=== PATIENT | female | born 1980 | race Caucasian/White ===

== ENCOUNTER 2018-12-19 19:57 | Emergency (ER) | payer SELFPAY ==
[2018-12-19] MEDS ORDERED: KETOROLAC 30 MG/ML INJ ONE (21:13)
[2018-12-19] MEDS ORDERED: CYCLOBENZAPRINE 10 MG TAB ONE (21:13)
--- NOTE | 2018-12-19 21:53 | ER ---
Nurse's Notes [facility] Name: Faby Ontiveros Age: 38 yrs Sex: Female : 1980 Arrival Date: 12/19/2018 Time: 20:00 Bed 20 Private MD: Diagnosis: Low back pain Presentation: 12/19 20:35 Presenting complaint: Patient states: Pt reports she started having right hip pain that ea radiates to her hip and pelvis, pt reports pain feels sharp. pt states "it feels like it is traveling to my ovaries". Transition of care: patient was not received from another setting of care. Onset of symptoms was December 19, 2018. Risk Assessment: Do you want to hurt yourself or someone else? Patient reports no desire to harm self or others. Initial Sepsis Screen: Does the patient meet any 2 criteria? No. Patient's initial sepsis screen is negative. Does the patient have a suspected source of infection? No. Patient's initial sepsis screen is negative. Care prior to arrival: Medication(s) given: Motrin, 1/2 lortab. 20:35 Method Of Arrival: Ambulatory ea 20:35 Acuity: MAMTA 4 ea Triage Assessment: 21:29 General: Appears uncomfortable, Behavior is cooperative, appropriate for age. ae4 Musculoskeletal: Patient has a stiff gait. no visible swelling to lower back. 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 - Social history:: Smoking status: Patient/guardian denies using tobacco. - Ebola Screening: : No symptoms or risks identified at this time. Screenin:37 Abuse screen: Denies threats or abuse. Nutritional screening: No deficits noted. ea Tuberculosis screening: No symptoms or risk factors identified. Fall Risk None identified. Assessment: 20:50 General: Appears uncomfortable, Behavior is cooperative, anxious. Pain: Complains of ae4 pain in right low back Pain radiates to right lower quadrant. Pain: Pain currently is 8 out of 10 on a pain scale. Neuro: Level of Consciousness is awake, alert, obeys commands, Oriented to person, place, time, situation, Appropriate for age. Cardiovascular: Patient's skin is warm and dry. Respiratory: Airway is patent Respiratory effort is even, unlabored, Respiratory pattern is regular, symmetrical. GI: No signs and/or symptoms were reported involving the gastrointestinal system. : No signs and/or symptoms were reported regarding the genitourinary system. Urine is cloudy. EENT: No signs and/or symptoms were reported regarding the EENT system. Derm: Skin is pink, warm \\T\\ dry. Musculoskeletal: Reports pain in right low back. 21:26 Reassessment: Patient states feeling better. Patient states symptoms have improved. ae4 Pain: Complains of pain in right low back Pain radiates to right lower quadrant. Pain: Pain currently is 2 out of 10 on a pain scale. 22:31 Reassessment: Patient appears in no apparent distress at this time. Patient and/or jb4 family updated on plan of care and expected duration. Pain level reassessed. Patient is alert, oriented x 3, equal unlabored respirations, skin warm/dry/pink. Patient states feeling better. Vital Signs: 20:37 BP 130 / 51; Pulse 87; Resp 18; Temp 98.7; Pulse Ox 99% on R/A; Weight 57.61 kg; Height ea 4 ft. 11 in. (149.86 cm); Pain 10/10; 21:37 BP 112 / 57; Pulse 66; Resp 16; Pulse Ox 99% on R/A; jb4 22:29 BP 102 / 70; Pulse 72; Resp 16; Pulse Ox 98% on R/A; jb4 20:37 Body Mass Index 25.65 (57.61 kg, 149.86 cm) ea ED Course: 20:00 Patient arrived in ED. am2 20:20 Macarena Barlow FNP-C is [facility]. kb 20:20 Cristobal Harding MD is Attending Physician. kb 20:36 Radiology exam delayed due to test not completed at this time. vm2 20:37 Triage completed. ea 20:40 Arm band placed on right wrist. Patient placed in an exam room, on a stretcher, on ea pulse oximetry. 21:[address] via wheelchair. vm2 21:27 Bed in low position. Call light in reach. Side rails up X 1. Pulse ox on. NIBP on. ae4 Pillow given. 21:33 Ankur Brito, RN is Primary Nurse. ae4 22:29 No provider procedures requiring assistance completed. Patient did not have IV access jb4 during this emergency room visit. Administered Medications: 21:02 Drug: TORadol 60 mg Route: IM; Site: right gluteus; ae4 21:24 Follow up: Response: Pain is decreased ae4 21:02 Drug: Flexeril 10 mg Route: PO; ae4 21:24 Follow up: Response: Pain is decreased ae4 22:20 Drug: SOLU-Medrol 125 mg Route: IM; Site: left gluteus; jb4 22:34 Follow up: Response: No adverse reaction jb4 Outcome: 21:53 Discharge ordered by . kb 22:29 Discharged to home ambulatory, with family. jb4 22:29 Condition: stable 22:29 Discharge instructions given to patient, family, Instructed on discharge instructions, follow up and referral plans. medication usage, Demonstrated understanding of instructions, follow-up care, medications, Prescriptions given X 2. 22:35 Patient left the ED. jb4 Signatures: Macarena Barlow, CARROTING MACHINE OFFBEARER-C CARROTING MACHINE OFFBEARER-Ckb Alexander Watkins RN RN jb4 Fanny Espinoza Victoria vm2 Gabrielle Roberts RN RN ea Elliott, Andrea, RN RN ae4
--- NOTE | 2018-12-19 21:54 | EDPHYS ---
Physician Documentation [facility] Name: Faby Ontiveros Age: 38 yrs Sex: Female : 1980 Arrival Date: 12/19/2018 Time: 20:00 Bed 20 Private MD: ED Physician Cristobal Harding HPI: 12/19 21:18 This 38 yrs old Female presents to ER via Ambulatory with complaints of Back kb Pain. 21:18 The patient presents with pain that is acute, with no known mechanism of injury. The kb symptoms are located in the low back. Onset: The symptoms/episode began/occurred today. The pain radiates to the right iliac crest. Associated signs and symptoms: The patient has no apparent associated signs or symptoms. The problem was sustained without known cause. Modifying factors: The patient symptoms are alleviated by nothing, the patient symptoms are aggravated by any movement. Severity of symptoms: At their worst the symptoms were moderate, in the emergency department the symptoms are unchanged. The patient has experienced similar episodes in the past. The patient has not recently seen a physician. Pt states she was sitting down and started having right low back pain. "I thought it was my regular sciatica but then it radiated around my hip to my ovary.". 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 - Social history:: Smoking status: Patient/guardian denies using tobacco. - Ebola Screening: : No symptoms or risks identified at this time. ROS: 21:16 Constitutional: Negative for fever, chills, and weight loss, Cardiovascular: Negative kb for chest pain, palpitations, and edema, Respiratory: Negative for shortness of breath, cough, wheezing, and pleuritic chest pain, Abdomen/GI: Negative for abdominal pain, nausea, vomiting, diarrhea, and constipation, : Negative for injury, bleeding, discharge, and swelling, MS/Extremity: Negative for injury and deformity, Skin: Negative for injury, rash, and discoloration, Neuro: Negative for headache, weakness, numbness, tingling, and seizure. 21:16 Back: Positive for pain at rest, pain with movement, radiated pain, of the right low back. Exam: 21:16 Constitutional: This is a well developed, well nourished patient who is awake, alert, kb and in no acute distress. Head/Face: Normocephalic, atraumatic. Chest/axilla: Normal chest wall appearance and motion. Nontender with no deformity. No lesions are appreciated. Cardiovascular: Regular rate and rhythm with a normal S1 and S2. No gallops, murmurs, or rubs. Normal PMI, no JVD. No pulse deficits. Respiratory: Lungs have equal breath sounds bilaterally, clear to auscultation and percussion. No rales, rhonchi or wheezes noted. No increased work of breathing, no retractions or nasal flaring. Abdomen/GI: Soft, non-tender, with normal bowel sounds. No distension or tympany. No guarding or rebound. No evidence of tenderness throughout. Back: No spinal tenderness. No costovertebral tenderness. Pain with movement Skin: Warm, dry with normal turgor. Normal color with no rashes, no lesions, and no evidence of cellulitis. MS/ Extremity: Pulses equal, no cyanosis. Neurovascular intact. Full, normal range of motion. Neuro: Awake and alert, GCS 15, oriented to person, place, time, and situation. Cranial nerves II-XII grossly intact. Motor strength 5/5 in all extremities. Sensory grossly intact. Cerebellar exam normal. Normal gait. Vital Signs: 20:37 BP 130 / 51; Pulse 87; Resp 18; Temp 98.7; Pulse Ox 99% on R/A; Weight 57.61 kg; Height ea 4 ft. 11 in. (149.86 cm); Pain 10/10; 21:37 BP 112 / 57; Pulse 66; Resp 16; Pulse Ox 99% on R/A; jb4 22:29 BP 102 / 70; Pulse 72; Resp 16; Pulse Ox 98% on R/A; jb4 20:37 Body Mass Index 25.65 (57.61 kg, 149.86 cm) ea MDM: 20:20 Patient medically screened. kb 21:17 Data reviewed: vital signs, nurses notes. Data interpreted: Pulse oximetry: on room air kb is 99 %. Interpretation: normal. Counseling: I had a detailed discussion with the patient and/or guardian regarding: the historical points, exam findings, and any diagnostic results supporting the discharge/admit diagnosis, radiology results, the need for outpatient follow up, a family practitioner, to return to the emergency department if symptoms worsen or persist or if there are any questions or concerns that arise at home. 12/19 20:56 Order name: Urine Dipstick--Ancillary (enter results) ri 12/19 20:56 Order name: Urine --Ancillary (enter results) ri 12/19 20:33 Order name: Urine Dipstick-Ancillary (obtain specimen); Complete Time: 20:55 kb Administered Medications: 21:02 Drug: TORadol 60 mg Route: IM; Site: right gluteus; ae4 21:24 Follow up: Response: Pain is decreased ae4 21:02 Drug: Flexeril 10 mg Route: PO; ae4 21:24 Follow up: Response: Pain is decreased ae4 22:20 Drug: SOLU-Medrol 125 mg Route: IM; Site: left gluteus; jb4 22:34 Follow up: Response: No adverse reaction jb4 Disposition: 12/20 00:40 Co-signature as Attending Physician, Cristobal Harding MD. [email or web address] Disposition: 12/19/18 21:53 Discharged to Home. Impression: Low back pain. - Condition is Stable. - Discharge Instructions: Back Pain, Adult, [id number]. - Prescriptions for Cyclobenzaprine 10 mg Oral Tablet - take 1 tablet by ORAL route every 8 hours As needed; 21 tablet. Diclofenac Sodium 75 mg Oral Tablet, Delayed Release (E.C.) - take 1 tablet by ORAL route 2 times per day As needed; 30 tablet. - Medication Reconciliation Form, Thank You Letter, Antibiotic Education, Prescription Opioid Use form. - Follow up: Emergency Department; When: As needed; Reason: Worsening of condition. Follow up: Private Physician; When: 2 - 3 days; Reason: Recheck today's complaints, Continuance of care, Re-evaluation by your physician. Signatures: Dispatcher [employer] Macarena Swartz, Cristobal Fuentes MD MD pkl Alexander Watkins RN RN jb4 Gabrielle Roberts RN RN ea Elliott, Andrea RN RN ae4 Corrections: (The following items were deleted from the chart) 12/19 21:18 21:16 Constitutional: This is a well developed, well nourished patient who is awake, kb alert, and in no acute distress. Head/Face: Normocephalic, atraumatic. Chest/axilla: Normal chest wall appearance and motion. Nontender with no deformity. No lesions are appreciated. Cardiovascular: Regular rate and rhythm with a normal S1 and S2. No gallops, murmurs, or rubs. Normal PMI, no JVD. No pulse deficits. Respiratory: Lungs have equal breath sounds bilaterally, clear to auscultation and percussion. No rales, rhonchi or wheezes noted. No increased work of breathing, no retractions or nasal flaring. Abdomen/GI: Soft, non-tender, with normal bowel sounds. No distension or tympany. No guarding or rebound. No evidence of tenderness throughout. Back: No spinal tenderness. No costovertebral tenderness. Full range of motion. Skin: Warm, dry with normal turgor. Normal color with no rashes, no lesions, and no evidence of cellulitis. MS/ Extremity: Pulses equal, no cyanosis. Neurovascular intact. Full, normal range of motion. Neuro: Awake and alert, GCS 15, oriented to person, place, time, and situation. Cranial nerves II-XII grossly intact. Motor strength 5/5 in all extremities. Sensory grossly intact. Cerebellar exam normal. Normal gait. kb 22:35 21:53 12/19/2018 21:53 Discharged to Home. Impression: Low back pain. Condition is jb4 Stable. Forms are Medication Reconciliation Form, Thank You Letter, Antibiotic Education, Prescription Opioid Use. Follow up: Emergency Department; When: As needed; Reason: Worsening of condition. Follow up: Private Physician; When: 2 - 3 days; Reason: Recheck today's complaints, Continuance of care, Re-evaluation by your physician. kb
[2018-12-19] MEDS ORDERED: METHYLPREDNISOLONE 125 MG INJ ONE (22:26)
[2018-12-20 05:35] LABS: Urine Blood TRACE (NEG); Urine Glucose NEGATIVE (NEG); Urine Protein TRACE (NEG); Urine Specific Gravity 1.025 (1.005-1.030)
--- NOTE | 2018-12-21 10:14 | RAD REPORT ---
EXAM DESCRIPTION: CT - Stone Protocol - 12/19/2018 9:49 pm CLINICAL HISTORY: 38 years Female, flank pain COMPARISON: None. TECHNIQUE: CT scan of the abdomen and pelvis without contrast. 3 mm axial images were obtained along with coronal and sagittal reformatted images. This exam was performed according to our departmental dose-optimization program, which includes autom ated exposure control, adjustment of the mA and/or kV according to patient size and/or use of iterati ve reconstruction technique.. FINDINGS: Lung bases: No active infiltrates. Liver: Normal. Spleen: Normal. Pancreas: Normal. Gallbladder: Normal. Right adrenal gland: Normal. Left adrenal gland: Normal. Right kidney: There are hyperdense renal pyramids throughout the right kidney. This is a nonspecific finding ranging from normal, to dehydration, to increased urine osmolality. Left kidney: There are hyperdense renal pyramids throughout the left kidney. Right ureter: Normal course and caliber. Left ureter: Normal course and caliber. Urinary bladder: Unremarkable. Retroperitoneal structures: Mild atherosclerotic disease about the abdominal aorta and iliac arteries . Bowel survey: Increased stool within the ascending and proximal transverse colon as well as the dista l descending colon. The appendix is not identified. There are no secondary signs of appendicitis. Peritoneal cavity: No free fluid. Mesenteric structures: Unremarkable. Abdominal wall: Small subumbilical hernia containing fat. Bony structures: No suspicious lesions. IMPRESSION: 1. Hyperdense renal pyramids bilaterally which is a nonspecific finding and may reflect a normal finding for the patient, dehydration, or increased urinary osmolality. 2. Increased stool within the ascending and proximal transverse colon as well as the distal descendin g colon. 3. Atherosclerotic disease. 4. Small supraumbilical hernia containing fat. Electronically signed by: Ean Boyle MD 12/19/2018 9:41 PM CDT Due to temporary technical issues with the PACS/Fluency reporting system, reports are being signed by the in house radiologist as a courtesy to ensure prompt reporting. The interpreting radiologist is f ully responsible for the content of the report.
== END 2018-12-19 22:35 | disposition home or self-care (01) ==
LOC: ER 19:57
DX: M54.5 Low back pain (principal); Z88.0 Allergy status to penicillin
CPT/HCPCS: 74176; 76377; 81003; 81025; 96372; 99284; J2930

== ENCOUNTER 2019-05-05 10:18 | Emergency (ER) | payer SELFPAY ==
[2019-05-05] MEDS ORDERED: ONDANSETRON 4 MG/2 ML VIAL ONE (10:50)
[2019-05-05] MEDS ORDERED: NA CHLORIDE 0.9% 1,000 ML ONE ×2 (10:51→11:41)
[2019-05-05 11:10] LABS: Absolute Lymphocytes (CBC) 0.9 K/uL (0.7-4.9); Basophils % 0.8 % (0-1.3); Hematocrit 39.7 % (36.0-45.0); Lymphocytes % 9.2 % (15.3-44.8); MPV 9.1 fL (7.6-11.3); RBC Red Blood Cell Count 4.13 M/uL (3.86-4.86)
[2019-05-05 11:35] LABS: Albumin 3.6 g/dL (3.4-5.0); Bilirubin Direct 0.1 mg/dL (0-0.2); Bilirubin Total 0.5 mg/dL (0.2-1.0); Potassium 3.9 mmol/L (3.5-5.1)
[2019-05-05 11:55] LABS: Urine Blood 3+ (NEG); Urine Glucose NEGATIVE (NEG); Urine Protein NEGATIVE (NEG)
--- NOTE | 2019-05-05 12:10 | RAD REPORT ---
EXAM DESCRIPTION: CT - Abdomen Pelvis Wo Contrast - 05/05/2019 11:55 am CLINICAL HISTORY: Abdominal pain. ABD PAIN COMPARISON: Stone Protocol dated 12/19/2018 TECHNIQUE: CT imaging of the abdomen and pelvis was performed without contrast. Solid organ, bowel a nd vascular assessment is limited due to lack of IV and oral contrast. All CT scans are performed using dose optimization technique as appropriate and may include automated exposure control or mA/KV adjustment according to patient size. FINDINGS: The lower lung de luna are clear. The liver, spleen, pancreas, adrenal glands are within normal limits for a limited non-contrast exami nation.Both kidneys appear somewhat prominent in size with subtle hyperdensity seen in the medullary pyramids. No stone or hydronephrosis. Small fat containing umbilical hernia. No bowel obstruction, free air, intra-abdominal free fluid or abscess. Appendectomy. Trace free flui d is seen in the pelvis. The osseous structures are within normal limits. IMPRESSION: No acute intra-abdominal or pelvic findings. Mildly prominent renal size with subtle hyperdensity in the medullary pyramids may indicate dehydrati on. Suggest correlation with clinical findings. A limited non-contrast examination was performed as detailed.
--- NOTE | 2019-05-05 13:04 | ER ---
Nurse's Notes [facility] Name: Faby Ontiveros Age: 39 yrs Sex: Female : 1980 Arrival Date: 05/05/2019 Time: 10:19 Bed 19 [facility] MD: Diagnosis: Dehydration;Unspecified abdominal pain;Dental pain Presentation: 05/05 10:31 Presenting complaint: Patient states: vomiting that began last night. Family member ss states. " she has an abscessed tooth so I don't know if that is what is going on, but she started taking some Cipro that we had laying around the house yesterday.". Transition of care: patient was not received from another setting of care. Onset of symptoms was May 04, 2019. Risk Assessment: Do you want to hurt yourself or someone else? Patient reports no desire to harm self or others. Initial Sepsis Screen: Does the patient have a suspected source of infection? No. Patient's initial sepsis screen is negative. Care prior to arrival: None. 10:31 Acuity: MAMTA 3 ss 10:31 Method Of Arrival: Ambulatory ss 11:00 Initial Sepsis Screen: Does the patient meet any 2 criteria? No. Patient's initial bp sepsis screen is negative. Triage Assessment: 11:00 General: Appears in no apparent distress. comfortable, Behavior is cooperative, bp appropriate for age, anxious. 11:00 Pain: Denies pain. EENT: No deficits noted. Neuro: No deficits noted. Cardiovascular: bp No deficits noted. Respiratory: No deficits noted. GI: Reports nausea, vomiting. : No signs and/or symptoms were reported regarding the genitourinary system. Derm: No deficits noted. Musculoskeletal: No deficits noted. RANGE AID: 13:16 LMP N/A - Irregular menses bp Historical: - Allergies: 10:34 PENICILLINS; ss - PSHx: 10:34 Appendectomy; Tubal ligation; titanium fernando left lower leg; ss - Immunization history:: Adult Immunizations up to date. - Social history:: Smoking status: Patient uses tobacco products, smokes one-half pack cigarettes per day. - Ebola Screening: : Patient denies exposure to infectious person Patient denies travel to an Ebola-affected area in the 21 days before illness onset. Screenin:36 Abuse screen: Denies threats or abuse. Denies injuries from another. Nutritional bp screening: No deficits noted. Tuberculosis screening: No symptoms or risk factors identified. Fall Risk None identified. Assessment: 10:34 Reassessment: Patient is kneeling over trash can and insist that she would like to ss kneel a little longer before getting into the exam bed to obtain VS. Unable to obtain VS at this time. Patient given emesis bag, is thankful. 11:28 Reassessment: VS STABLE, CT PENDING. Pain: Denies pain. GI: Abdomen is non-distended. bp 12:07 Reassessment: PT RETURNED FROM CT. ALL CURRENT ORDERS COMPLETED Patient states feeling bp better. 13:17 Reassessment: PT D/C HOME AMBULATORY WITH FAMILY, DX WITH DEHYDRATION AND DENTAL PAIN. bp Vital Signs: 10:34 BP 123 / 73; Pulse 66; Resp 17; Temp 97.5; Pulse Ox 100% ; Weight 56.7 kg; Height 4 ft. bp 11 in. (149.86 cm); Pain 8/10; 11:28 BP 103 / 66; Pulse 61; Resp 14; Pulse Ox 100% ; bp 12:07 BP 119 / 38; Pulse 58; Resp 16; Pulse Ox 100% ; bp 13:16 BP 105 / 67; Pulse 93; Resp 16; Temp 97.5; Pulse Ox 99% ; bp 10:34 Body Mass Index 25.25 (56.70 kg, 149.86 cm) bp ED Course: 10:19 Patient arrived in ED. as 10:28 Timur Harry, ABHIJEET is Primary Nurse. bp 10:33 Triage completed. ss 10:34 Devan Ponce NP is PHCP. pm1 10:34 Yovani Olmos MD is Attending Physician. pm1 10:34 Arm band placed on right wrist. ss 10:36 Patient has correct armband on for positive identification. Bed in low position. Call bp light in reach. Side rails up X2. Adult w/ patient. 11:01 Inserted saline lock: 20 gauge in right antecubital area, using aseptic technique. bp Blood collected. 11:30 Radiology exam delayed due to lab results not completed at this time. (BUN/Creatinine). sj 11:[address] via wheelchair. nj 11:55 Abdomen In Process Unspecified. EDMS 13:17 No provider procedures requiring assistance completed. IV discontinued, intact, bp bleeding controlled, No redness/swelling at site. Pressure dressing applied. Administered Medications: 11:00 Drug: NS 0.9% 1000 ml Route: IV; Rate: 1000 ml; Site: right antecubital; bp 13:19 Follow up: IV Status: Completed infusion; IV Intake: 1000ml bp 11:01 Drug: Zofran 4 mg Route: IVP; Site: right antecubital; bp 11:03 Follow up: Response: Nausea is decreased bp 12:07 Drug: NS 0.9% 1000 ml Route: IV; Rate: 1000 ml; Site: right antecubital; bp 13:19 Follow up: IV Status: Completed infusion; IV Intake: 1000ml bp Intake: 13:19 IV: 1000ml; Total: 1000ml. bp 13:19 IV: 1000ml; Total: 2000ml. bp Outcome: 13:03 Discharge ordered by MD. pm1 13:17 Discharged to home ambulatory, with family. bp 13:17 Condition: stable 13:17 Discharge instructions given to patient, Instructed on discharge instructions, follow up and referral plans. medication usage, Demonstrated understanding of instructions, follow-up care, medications, Prescriptions given X 3. 13:19 Patient left the ED. bp Signatures: Dispatcher [employer] EDMS Odilia Nuñez Amelia as Smirch, Shelby, RN RN ss Devan Ponce NP CHIP TESTER pm1 Angelo Meza Brian, RN RN bp Corrections: (The following items were deleted from the chart) 10:36 10:34 Resp 17bpm; 56.7 kg; Height 4 ft. 11 in.; BMI: 25.2; Pain 8/10; ss bp 10:36 10:34 Reassessment: Patient is standing over trash can and insist that she would like ss to kneel a little longer before getting into the exam bed to obtain VS. ss
--- NOTE | 2019-05-05 13:04 | EDPHYS ---
Physician Documentation [facility] Name: Faby Ontiveros Age: 39 yrs Sex: Female : 1980 Arrival Date: 05/05/2019 Time: 10:19 Bed 19 Private MD: ED Physician Yovani Olmos HPI: 05/05 10:59 This 39 yrs old Female presents to ER via Ambulatory with complaints of pm1 Vomiting, Toothache. 10:59 The patient presents to the emergency department with nausea, vomiting, abdominal pain. pm1 Onset: The symptoms/episode began/occurred last night. Possible causes: unknown, thinks that it might be Cipro that she took. She took some left over Cipro for some swelling to right jaw area due to dental issue. Patient's dental pain started 1 week ago but the pain went away a few days later. Patient does not currently have any dental pin. The symptoms are aggravated by nothing. The symptoms are alleviated by nothing. Associated signs and symptoms: Pertinent negatives: diarrhea, dysuria, fever. Severity of symptoms: in the emergency department the symptoms are unchanged. The patient has not experienced similar symptoms in the past. The patient has not recently seen a physician. 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 - Social history:: Smoking status: Patient uses tobacco products, smokes one-half pack cigarettes per day. - Ebola Screening: : Patient denies exposure to infectious person Patient denies travel to an Ebola-affected area in the 21 days before illness onset. ROS: 10:59 Constitutional: Negative for fever, chills, and weight loss, Eyes: Negative for injury, pm1 pain, redness, and discharge, Neck: Negative for injury, pain, and swelling. 10:59 Cardiovascular: Negative for chest pain, palpitations, and edema, Respiratory: Negative for shortness of breath, cough, wheezing, and pleuritic chest pain. 10:59 Back: Negative for injury and pain, : Negative for injury, bleeding, discharge, and swelling, MS/Extremity: Negative for injury and deformity, Skin: Negative for injury, rash, and discoloration, Neuro: Negative for headache, weakness, numbness, tingling, and seizure. 10:59 ENT: Positive for right jaw swelling, Negative for dental pain. 10:59 Abdomen/GI: Positive for abdominal pain, nausea, vomiting, of the epigastric area, Negative for diarrhea, constipation. Exam: 10:59 Constitutional: This is a well developed, well nourished patient who is awake, alert, pm1 and in no acute distress. Head/Face: Normocephalic, atraumatic. Eyes: Pupils equal round and reactive to light, extra-ocular motions intact. Lids and lashes normal. Conjunctiva and sclera are non-icteric and not injected. Cornea within normal limits. Periorbital areas with no swelling, redness, or edema. 10:59 Neck: Trachea midline, no thyromegaly or masses palpated, and no cervical lymphadenopathy. Supple, full range of motion without nuchal rigidity, or vertebral point tenderness. No Meningismus. Chest/axilla: Normal chest wall appearance and motion. Nontender with no deformity. No lesions are appreciated. Cardiovascular: Regular rate and rhythm with a normal S1 and S2. No gallops, murmurs, or rubs. Normal PMI, no JVD. No pulse deficits. Respiratory: Lungs have equal breath sounds bilaterally, clear to auscultation and percussion. No rales, rhonchi or wheezes noted. No increased work of breathing, no retractions or nasal flaring. 10:59 Back: No spinal tenderness. No costovertebral tenderness. Full range of motion. Skin: Warm, dry with normal turgor. Normal color with no rashes, no lesions, and no evidence of cellulitis. MS/ Extremity: Pulses equal, no cyanosis. Neurovascular intact. Full, normal range of motion. 10:59 ENT: External ear(s): are unremarkable, Ear canal(s): are normal, TM's: are normal, Posterior pharynx: is normal, Dental exam: abscess, is not appreciated, dental caries, that is moderate, specifically in the lower right second molar (#31), gum swelling, not appreciated. 10:59 Abdomen/GI: Inspection: abdomen appears normal, Bowel sounds: normal, Palpation: soft, mild abdominal tenderness, in the epigastric area, mass, is not appreciated, rebound tenderness, is not appreciated. 10:59 Neuro: Orientation: is normal, Motor: is normal, moves all fours. Vital Signs: 10:34 BP 123 / 73; Pulse 66; Resp 17; Temp 97.5; Pulse Ox 100% ; Weight 56.7 kg; Height 4 ft. bp 11 in. (149.86 cm); Pain 8/10; 11:28 BP 103 / 66; Pulse 61; Resp 14; Pulse Ox 100% ; bp 12:07 BP 119 / 38; Pulse 58; Resp 16; Pulse Ox 100% ; bp 13:16 BP 105 / 67; Pulse 93; Resp 16; Temp 97.5; Pulse Ox 99% ; bp 10:34 Body Mass Index 25.25 (56.70 kg, 149.86 cm) bp MDM: 10:35 Patient medically screened. pm1 12:59 Data reviewed: vital signs. Data interpreted: Pulse oximetry: on room air is 100 %. pm1 Interpretation: normal. Counseling: I had a detailed discussion with the patient and/or guardian regarding: the historical points, exam findings, and any diagnostic results supporting the discharge/admit diagnosis, lab results, radiology results, the need for outpatient follow up, to return to the emergency department if symptoms worsen or persist or if there are any questions or concerns that arise at home. 05/05 10:43 Order name: Basic Metabolic Panel; Complete Time: 11:38 pm1 05/05 10:43 Order name: CBC with Diff; Complete Time: 11:24 pm1 05/05 10:43 Order name: Creatinine for Radiology; Complete Time: 11:38 pm1 05/05 10:43 Order name: Hepatic Function; Complete Time: 11:38 pm1 05/05 10:43 Order name: Lipase; Complete Time: 11:38 pm1 05/05 11:11 Order name: Urine Dipstick--Ancillary (enter results); Complete Time: 12:01 eb 05/05 10:43 Order name: IV Saline Lock; Complete Time: 11:00 pm1 05/05 10:43 Order name: Labs collected and sent; Complete Time: 11:00 pm1 05/05 11:11 Order name: Urine --Ancillary (enter results) eb 05/05 11:41 Order name: Abdomen ; Complete Time: 12:24 EDMS 05/05 10:43 Order name: Urine Dipstick-Ancillary (obtain specimen); Complete Time: 11:03 pm1 05/05 10:43 Order name: Urine Test (obtain specimen); Complete Time: 11:03 pm1 Administered Medications: 11:00 Drug: NS 0.9% 1000 ml Route: IV; Rate: 1000 ml; Site: right antecubital; bp 13:19 Follow up: IV Status: Completed infusion; IV Intake: 1000ml bp 11:01 Drug: Zofran 4 mg Route: IVP; Site: right antecubital; bp 11:03 Follow up: Response: Nausea is decreased bp 12:07 Drug: NS 0.9% 1000 ml Route: IV; Rate: 1000 ml; Site: right antecubital; bp 13:19 Follow up: IV Status: Completed infusion; IV Intake: 1000ml bp Disposition: 15:20 Co-signature as Attending Physician, Yovani Olmos MD. Disposition: 05/05/19 13:03 Discharged to Home. Impression: Dehydration, Unspecified abdominal pain, Dental pain. - Condition is Stable. - Discharge Instructions: Abdominal Pain, Adult, Dehydration, Adult, Dental Pain, Rehydration, Adult. - Prescriptions for Clindamycin HCl 300 mg Oral Capsule - take 1 capsule by ORAL route every 6 hours for 10 days; 40 capsule. Zofran 4 mg Oral Tablet - take 1 tablet by ORAL route every 8 hours As needed; 20 tablet. Tramadol 50 mg Oral Tablet - take 1 tablet by ORAL route every 8 hours as needed; 12 tablet. - Medication Reconciliation Form, Thank You Letter, Antibiotic Education, Prescription Opioid Use form. - Follow up: Emergency Department; When: As needed; Reason: Worsening of condition. Follow up: Private Physician; When: 2 - 3 days; Reason: Recheck today's complaints, Continuance of care, Re-evaluation by your physician. - Problem is new. - Symptoms have improved. 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 EDME EDMS 13:19 13:03 05/05/2019 13:03 Discharged to Home. Impression: Dehydration; Unspecified bp abdominal pain; Dental pain. Condition is Stable. Forms are Medication Reconciliation Form, Thank You Letter, Antibiotic Education, Prescription Opioid Use. Follow up: Emergency Department; When: As needed; Reason: Worsening of condition. Follow up: Private Physician; When: 2 - 3 days; Reason: Recheck today's complaints, Continuance of care, Re-evaluation by your physician. Problem is new. Symptoms have improved. pm1
[2019-05-05 13:35] VITALS: TEMP 97.5
[2019-05-05 13:37] VITALS: BP 105/67; O2SAT 99
== END 2019-05-05 13:19 | disposition home or self-care (01) ==
LOC: ER 10:18
DX: E86.0 Dehydration (principal); R10.9 Unspecified abdominal pain; K08.89 Other specified disorders of teeth and supporting structures
CPT/HCPCS: 36415; 74176; 80048; 80076; 81003; 81025; 83690; 85025; 96361; 96374; 99284; J2405; J7030